=== PATIENT | male | born 1980 | race African-American/Black ===

== ENCOUNTER 2021-02-28 12:41 | Emergency (ER) | payer SELFPAY ==
[2021-02-28 12:59] VITALS: BP 182/95; PULSE 93; TEMP 99; BMI 26.4
== END 2021-02-28 13:56 | disposition left against medical advice (07) ==
LOC: JER 12:41
DX: T50.904A Poisoning by unspecified drugs, medicaments and biological substances, undetermined, initial encounter (principal)
CPT/HCPCS: 99283-25